=== PATIENT | female | born 1975 | race Caucasian/White ===

== ENCOUNTER → 2016-07-05 | Outpatient (CLI) | payer BC ==
--- NOTE | 2016-07-05 12:46 | MG ---
Examination: Bilateral screening mammogram. Clinical history: Routine screening. Technique: Digital CC and MLO views of both breasts were obtained. Computer aided detection analysis was performed and used during the interpretation. Comparison: None available. Baseline mammogram. Findings: The breasts are heterogeneously dense, reducing the sensitivity of mammography. Benign-appearing sundar cifications are noted in the breasts bilaterally. No suspicious mass, area of architectural distortion or suspicious cluster of microcalcifications is noted. Impression: 1. No mammographic evidence of malignancy. BI-RADS category 2-benign findings. Recommend routine annual screening mammogram. Diagnostic CAD was utilized and reviewed. * 0 (ZERO) - ASSESSMENT INCOMPLETE; ADDITIONAL IMAGING IS NEEDED. * 0C - ASSESSMENT INCOMPLETE, NEEDS ADDITIONAL IMAGING EVALUATION AND/OR PRIOR MAMMOGRAMS FOR COMPAR ROLANDA. * 1/1 (ONE) - NEGATIVE. * 2/II (TWO) - BENIGN FINDINGS. * 3/III (THREE) - PROBABLY BENIGN FINDING; SHORT INTERVAL FOLLOW-UP SUGGESTED. * 4/IV (FOUR) - SUSPICIOUS ABNORMALITY; BIOPSY SHOULD BE CONSIDERED. * 5/V - HIGHLY SUSPICIOUS OF MALIGNANCY; BIOPSY SHOULD BE PERFORMED. * 6/IV - KNOWN BIOPSY PROVEN MALIGNANCY-APPROPRIATE ACTION SHOULD BE TAKEN. A NEGATIVE X-RAY REPORT SHOULD NOT DELAY BIOPSY IF A DOMINANT OR CLINICALLY SUSPICIOUS MASS IS PRESENT; 4 TO 8 PERCENT OF CANCERS ARE NOT IDENTIFIED BY X-RAY. A NEGATIVE REPORT MAY REINFORCE THE CLINICAL IMPRESSION. ADENOSIS AND DENSE BREASTS MAY OBSCURE AN UNDERLYING NEOPLASM. Reported By:
== END ==
LOC: RAD 10:54
PROVIDERS: ATTEND Nurse Practitioner Family
DX: Z00.00 Encounter for general adult medical examination without abnormal findings (principal); Z12.31 Encounter for screening mammogram for malignant neoplasm of breast
CPT/HCPCS: 77067

== ENCOUNTER 2021-11-24 06:31 | Inpatient (IN) ==
[2021-11-24] MEDS ORDERED: LR 1,000 ML IV 1,000 ML IV ONE ×3 (06:43→09:38)
[2021-11-24] MEDS ORDERED: NS 100 ML IV 100 ML ONE (06:43)
[2021-11-24] MEDS ORDERED: ANCEF VIAL 1 GRAM IVP ONE (06:45)
[2021-11-24] MEDS ORDERED: DIPRIVAN VIAL 20 ML ONE (07:00)
[2021-11-24] MEDS ORDERED: PRECEDEX INJ VIAL IVP ONE (07:00)
[2021-11-24] MEDS ORDERED: ZOFRAN INJ 4 MG VIAL ONE (07:01)
[2021-11-24] MEDS ORDERED: BENADRYL INJ 50 MG VIAL ONE (07:01)
[2021-11-24] MEDS ORDERED: PEPCID 20 MG VIAL ONE (07:01)
[2021-11-24] MEDS ORDERED: KETAMINE HCL ONE (07:01)
[2021-11-24] MEDS ORDERED: DECADRON INJ ONE ×2 (07:01→08:19)
[2021-11-24] MEDS ORDERED: DILAUDID INJ ONE ×3 (07:22→10:52)
[2021-11-24 07:24] VITALS: BMI 36.3
[2021-11-24] MEDS ORDERED: BETADINE SOLN ONE (07:26)
[2021-11-24] MEDS ORDERED: BRIDION ONE (07:47)
[2021-11-24] MEDS ORDERED: ROBINUL ONE (07:58)
[2021-11-24] MEDS ORDERED: NAROPIN 0.75% EPI ONE (08:19)
[2021-11-24] MEDS ORDERED: ProvayBLUE 0.5% ONE (08:33)
[2021-11-24] MEDS ORDERED: XYLOCAINE 2 % (PLAIN) ONE (08:40)
[2021-11-24] MEDS ORDERED: ZEMURON 100 MG VIAL ONE (09:16)
[2021-11-24] MEDS ORDERED: TORADOL 30 MG VIAL ONE (09:35)
[2021-11-24] MEDS ORDERED: BARHEMSYS INJ IVP PRN (10:10)
[2021-11-24] MEDS ORDERED: ZOFRAN INJ 4 MG VIAL IVP PRN ×2 (10:10→10:43)
[2021-11-24] MEDS ORDERED: PHENERGAN INJ 25 MG IM PRN (10:10)
[2021-11-24] MEDS ORDERED: BENADRYL INJ 50 MG VIAL IVP PRN ×2 (10:10→10:43)
[2021-11-24] MEDS: DILAUDID INJ IVP PRN ×4 (10:19→11:08)
[2021-11-24] MEDS ORDERED: ULTANE GAS IN ONE (10:22)
[2021-11-24] MEDS ORDERED: TORADOL 30 MG VIAL IVP PRN (10:43)
[2021-11-24] MEDS ORDERED: D5 1/2 NS 1,000 ML 1,000 ML IV SCH (10:43)
[2021-11-24] MEDS: MORPHINE SULFATE PCA 30 MG IVP PRN (11:36)
[2021-11-24] MEDS: D5 1/2 NS 1,000 ML 1,000 ML IV SCH ×3 (13:42→23:18)
[2021-11-25] MEDS: MORPHINE SULFATE PCA 30 MG IVP PRN (01:30)
[2021-11-25] MEDS: D5 1/2 NS 1,000 ML 1,000 ML IV SCH ×5 (03:21→23:00)
[2021-11-25 05:32] LABS: BASOPHILS # (AUTO) 0.1 X10^3/uL (0.0-0.1); BASOPHILS % (AUTO) 0.7 % (0.2-1.0); EOSINOPHILS # (AUTO) 0.1 x10^3/uL (0.0-0.2); EOSINOPHILS % (AUTO) 0.6 % (0.9-2.9); HEMATOCRIT 31.6 % (36.0-47.0); HEMOGLOBIN 10.9 g/dL (12.0-16.0); LYMPHOCYTES # (AUTO) 1.7 X10^3/uL (1.3-2.9); LYMPHOCYTES % (AUTO) 13.4 % (21.0-51.0); MEAN CORPUSCULAR HEMOGLOBIN 29.6 pg (27.0-34.0); MEAN CORPUSCULAR HGB CONC 34.4 g/dL (33.0-35.0); MEAN PLATELET VOLUME 8.2 fL (7.4-11.0); MONOCYTES # (AUTO) 0.6 x10^3/uL (0.3-0.8); NEUTROPHILS # (AUTO) 10.1 x10^3/uL (2.2-4.8); NEUTROPHILS % (AUTO) 80.3 % (42.0-75.0); RED BLOOD COUNT 3.68 X10^6/uL (3.5-5.4); RED CELL DISTRIBUTION WIDTH 12.9 % (11.6-16.5); WHITE BLOOD COUNT 12.5 X10^3/uL (3.6-10.0)
[2021-11-25 05:33] LABS: BLOOD UREA NITROGEN 6 mg/dL (7-18); CALCIUM 8.2 mg/dL (8.5-10.1); CARBON DIOXIDE 28.8 mmol/L (21-32); CHLORIDE 104 mmol/L (98-107); COR NA(FOR HYPERGLY) 140 mmol/L (136-145); SODIUM 139 mmol/L (136-145); eGFR NON BLACK RACES > 60 (>60)
[2021-11-25 05:58] LABS: BAND NEUTROPHILS % 2 % (0-10); PLATELET MORPHOLOGY COMMENT NORMAL (NORMAL)
[2021-11-25] MEDS ORDERED: PHENERGAN INJ 25 MG IM PRN (07:25)
[2021-11-25] MEDS: ESTRACE PO SCH (08:43)
[2021-11-25] MEDS: COLACE CAP 100 MG PO SCH ×2 (08:43→21:24)
[2021-11-25] MEDS: MOTRIN TAB 800 MG PO PRN (12:45)
[2021-11-25] MEDS: BACTROBAN TOPICAL OINT TOP SCH ×2 (13:54→21:24)
[2021-11-25] MEDS: PERCOCET TAB 5/325 MG PO PRN (18:40)
[2021-11-26] MEDS: PERCOCET TAB 5/325 MG PO PRN (00:28)
[2021-11-26] MEDS: D5 1/2 NS 1,000 ML 1,000 ML IV SCH ×2 (02:09→06:20)
[2021-11-26] MEDS: MOTRIN TAB 800 MG PO PRN ×2 (02:09→08:00)
[2021-11-26] MEDS: BACTROBAN TOPICAL OINT TOP SCH (05:15)
[2021-11-26 08:55] VITALS: BP 108/55
[2021-11-26] MEDS: COLACE CAP 100 MG PO SCH (09:00)
[2021-11-26] MEDS: ESTRACE PO SCH (09:00)
== END 2021-11-26 09:26 | disposition home or self-care (01) | DRG 743 ==
LOC: OBS 06:31 → MED/SURG 10:36
PROVIDERS: ADMIT Specialist; ATTEND Specialist
DX: Z72.0 Tobacco use; N80.2 Endometriosis of fallopian tube; R10.2 Pelvic and perineal pain; N92.5 Other specified irregular menstruation